=== PATIENT | male | born 1940 | race Caucasian/White ===

== ENCOUNTER → 2024-02-05 10:11 | Outpatient (REF) | payer MEDICARE, OTHER, SELFPAY | LOC: HWRCS 10:11 | PROVIDERS: ATTENDING PHYSICIAN Internal Medicine Cardiovascular Disease; FAMILY PHYSICIAN Family Medicine | DX: Z95.2 Presence of prosthetic heart valve (principal) | CPT/HCPCS: 93306 ==

== ENCOUNTER 2024-06-11 18:59 | Emergency (ER) | payer MEDICARE, OTHER, SELFPAY ==
[2024-06-11 18:59] VITALS: BMI 31.0
[2024-06-11 19:09] VITALS: BP 144/71
--- NOTE | 2024-06-11 22:05 | ED.GENMED ---
History of Present Illness
<JOBY Ndiaye - Last Filed: 06/11/24 22:43>
General
Chief Complaint: Musculo-Skeletal Complaint
Time Seen by Provider: 06/11/24 22:04
History of Present Illness
History of Present Illness:
Patient is an 83 year old male with a PMH of Parkinsons presenting to the ED complaining of left sided neck pain x 2 days. The pain started yesterday morning when he woke up but has worsened over time. He described the pain as sharp and rated it as
an 8/10 currently. Patient states the pain does not radiate anywhere and he tried taking tylenol and it did not help. He also tried a hot pack and an ice pack which did not alleviate symptoms. Turning his head in any direction exacerbates pain.
claims he constantly sits in a position where his head is tilted to the right side, and he sleeps with his head tilted. Nothing like this has happened before. Patient denies any headache fever numbness tingling swelling fatigue erythema chest pain
palpitations sob.
Patient has a PMH of HTN HLD and a CABG, but did not take his nighttime dosing of those medications. He is a former smoker and occasionally drinks alcohol.
Past History
<JOBY Ndiaye - Last Filed: 06/11/24 22:43>
Past History
ED Past Medical History: Arrthythmia (Atrial fib), CAD, HTN, Hypercholesterolemia and Other (Parkinsons )
ED Past Surgical History: Cardiac (cabg x2, TAVR, Pacemaker); Negative Appendectomy, Bowel resection or Cholecystectomy
Social History
Tobacco: Former smoker
Alcohol: Occasional
Drug: None
Personal:
Living: with family
Employment: Retired
Family History
Family History: Other (Noncontributory)
Review of Systems
<JOBY Ndiaye - Last Filed: 06/11/24 22:43>
Review of Systems
Constitutional: Reports no symptoms
Respiratory: Reports no symptoms
Cardiac: Reports no symptoms
Musculoskeletal: Reports muscle pain, muscle stiffness and neck pain
Neurological: Reports no symptoms
Phy Exam
<JinST LemuelWI - Last Filed: 06/11/24 22:43>
Physical Exam
Physical Exam:
see physical
General Physical Exam
General Presentation: mild distress
General age: appears stated age
General Habitus: elderly
General Mental: alert
Cardiovascular Exam
Cardiovascular Exam: regular rate/rhythm, no edema, no gallop, no JVD and no murmur
Pulmonary Exam
Pulmonary Exam: lungs clear, no respiratory distress, no rales, chest non tender, no crackles, no rhonchi, no stridor, no wheezing and no cough
Sensory
Sensory Exam: intact
Musculoskeletal Exam
Musculoskeletal Exam: neck pain
Course
<Jinjeanie Michel [facility] - Last Filed: 06/11/24 22:43>
Orders/Labs/Results
Orders:
Orders
06/11/24 22:33
Cervical Collar- Treatment ONCE
Collar Type: Soft Cervical Collar
Apixaban [Eliquis] 5 mg PO NOW STA
Atorvastatin [Lipitor] 20 mg PO NOW STA
Ketorolac [Toradol] 30 mg IM NOW STA
Metoprolol Xl [Toprol Xl] 25 mg PO NOW STA
Prednisone [Deltasone] 40 mg PO NOW STA
Vital Signs
Initial and Last Documented VS:
Initial Vital Signs
Temp Pulse Resp BP Pulse Ox
98.2 F 74 18 144/71 98
06/11/24 19:09 06/11/24 19:09 06/11/24 19:09 06/11/24 19:09 06/11/24 19:09
Last Documented Vital Signs
Temp Pulse Resp BP Pulse Ox
98.2 F 70 18 167/87 98
06/11/24 19:09 06/11/24 22:45 06/11/24 19:09 06/11/24 23:00 06/11/24 19:09
<Rani Mejias DO - Last Filed: 06/11/24 23:24>
Orders/Labs/Results
Orders:
Orders
06/11/24 22:33
Cervical Collar- Treatment ONCE
Collar Type: Soft Cervical Collar
Apixaban [Eliquis] 5 mg PO NOW STA
Atorvastatin [Lipitor] 20 mg PO NOW STA
Ketorolac [Toradol] 30 mg IM NOW STA
Metoprolol Xl [Toprol Xl] 25 mg PO NOW STA
Prednisone [Deltasone] 40 mg PO NOW STA
Vital Signs
Initial and Last Documented VS:
Initial Vital Signs
Temp Pulse Resp BP Pulse Ox
98.2 F 74 18 144/71 98
06/11/24 19:09 06/11/24 19:09 06/11/24 19:09 06/11/24 19:09 06/11/24 19:09
Last Documented Vital Signs
Temp Pulse Resp BP Pulse Ox
98.2 F 70 18 167/87 98
06/11/24 19:09 06/11/24 22:45 06/11/24 19:09 06/11/24 23:00 06/11/24 19:09
<JOBY Ndiaye - Last Filed: 06/11/24 22:43>
MDM/Problems Addressed
Differential Diagnosis Includes:
muscle strain, nerve impingement
MDM/Problems Addressed:
Give doses of Eliquis atorvastatin and metoprolol that he didn't take tonight, and give one dose of Toradol for pain and a short course of prednisone.
<JOBY Ndiaye - Last Filed: 06/11/24 22:43>
*Critical Care Note
Total Time (30-74mins, 75-104mins- exclusive of procedures): Not Applicable
<Rani Mejias DO - Last Filed: 06/11/24 23:24>
*Pulse Oximetry
Patient hypoxic: no
ED Attending Note
<JOBY Ndiaye - Last Filed: 06/11/24 22:43>
-
Portions of this chart may have been created with voice recognition software.� Occasional wrong word or��sound alike� substitutions may have occurred due to the inherent limitations of voice recognition software.
<Rani Mejias DO - Last Filed: 06/11/24 23:24>
ED Attending Note
Patient seen and examined by attending physician: Yes
I performed the substantive portion of visit, reviewed & personally made and approve the management plan that is documented in note by myself or KAMI.: Yes
ED Attending Note:
This is an 83-year-old gentleman who resides at home with his . He has history of Parkinson's disease, atrial fibrillation chronically maintained on Eliquis, CAD, hypertension, hyperlipidemia, BPH with chronic indwelling Leon catheter.
History of TAVR as well as CABG. Chronic ambulatory dysfunction, utilizes a walker as well as wheelchair but often sedentary and chronic position of comfort is side bent to the right.
He awoke yesterday with some mild discomfort left posterior cervical region. Left posterior neck pain has worsened since yesterday, much worse today without radiation but worse with attempted rotation of his neck.
No insightful injury but he does admit to a 'near fall' 2 to 3 days ago while walking with his walker, lost his balance and reached out to the left to balance himself. He did not fall and denies pain at that time.
He denies headache, he has not had a fever nor chills, no chest pain, no cough no shortness of breath, no radiation of the pain, no weakness nor numbness.
Thus far has taken Tylenol several times today without relief. He also reports no relief with topical ice alternating with heat.
Perhaps similar episode of neck pain approximately 10 years ago. No known history of cervical DJD.
He was just recently treated for UTI with a course of Bactrim that completed a few days ago. He also recently completed a Medrol Dosepak 2 days ago for treatment of left anterior knee redness and inflammation. Left knee pain and redness promptly
resolved with Medrol Dosepak.
He has remote history of pseudogout.
GENERAL: 83-year-old gentleman appears his stated age, awake and alert, appears mildly uncomfortable, resistant to movement of his neck otherwise easily communicative. is accompanying. Afebrile. Mildly hypertensive.
EYE: pupils equal and reactive. anicteric
NECK: No midline bony tenderness, no step-off deformity ,there is mild to moderate tenderness left posterior paracervical region, no soft tissue swelling, moderately restricted cervical range of motion in all [place] related to pain. No adenopathy.
ENT: posterior pharynx is clear, oral mucosa is moist. No rhinorrhea.
CARDIAC: Regular rate and rhythm. 2/6 holosystolic murmur left sternal border.
LUNGS: Clear breath sounds bilaterally, no acute respiratory distress, no wheezes/rales/rhonchi
ABDOMEN: Rotund, soft, nondistended, without focal tenderness, no r/g, no cvat. normoactive BS. Leon catheter draining dark yellow urine.
NEUROLOGICAL: Alert and oriented x3, no focal neuro deficits. Motor strength is 5/5 bilaterally. Gross sensation is intact.
SKIN: Warm and dry, normal color, skin intact. No rash.
MUSCULOSKELETAL: No clubbing or cyanosis. +1 pitting edema bilateral lower extremities. Peripheral pulses are full and equal b/l. No palpable tenderness.
PSYCH: Normal and appropriate interaction.
History and exam most consistent with musculoskeletal cervical pain. I suspect acute left cervical myofascial strain. Could consider an element of focal inflammatory arthropathy such as pseudogout of cervical spine however there is no skin
changes, no soft tissue swelling nor erythema.
No history of fall, no history of fever, no associated neurologic deficits nor radicular signs or symptoms. No headache.
Imaging as well as laboratory studies considered but at this point not indicated.
Patient chronically maintained on Eliquis thus ongoing NSAIDs are not an option but will give a one-time dose of Toradol to assist with pain control and plan for a course of prednisone.
Recommend continuing Tylenol as needed for pain, local heat. Will add a short course of muscle relaxer/Flexeril to be taken at bedtime as needed.
Will add soft cervical collar for head support/cervical support for as needed comfort.
Prompt follow-up with PCP for recheck.
Return precautions discussed.
Discharge Plan
Departure
Patient Disposition: Home (Routine Discharge)
Date of Disposition: 06/11/24
Time of Disposition: 23:18
Patient with high blood pressure during this ER visit?: No
Condition: Good
Discharge Problem:
Acute cervical myofascial strain
Instructions: Cervical Muscle Strain
Prescriptions:
New
prednisone 10 mg Tablet
See Rx Instructions .ROUTE .COMPLEX Qty: 30 0RF
Rx Instructions:
Take By Mouth:
40 mg daily x3 days, 30 mg daily x3 days,
20 mg daily x3 days, 10 mg daily x3 days.
No Action
atorvastatin 20 MG tablet
20 mg PO QPM
nitroglycerin 0.4 MG tablet, sublingual
0.4 mg sublingual [id number] PRN (Reason: chest pain)
Rx Instructions:
took over a year ago
zolpidem 5 MG tablet
5 - 10 mg PO HSPRN PRN (Reason: insomnia)
fluticasone propionate 1 SPRAY spray,suspension
1 spray intranasal DAILYPRN PRN (Reason: congestion)
carbidopa-levodopa 25-100 mg Tablet Extended Release
3 tab PO TID
gabapentin 400 mg Capsule
400 mg PO HS
metoprolol succinate 25 mg Tablet Extended Release 24 Hr
25 mg PO BID
rasagiline 1 mg Tablet
1 mg PO DAILY
Eliquis 5 mg Tablet
5 mg PO BID
aspirin 81 mg Capsule
81 mg PO DAILY
Referrals:
Shaw Whiteside, DO [Family Provider] - Call in 1-3 days for appt
Interventions
Interventions:
*General Assessment Last Done: 06/11/24 19:09
ED-Musculoskeletal Assessment Last Done: 06/11/24 22:19
Discharge Date and Time
Print Language: PASHTO
[2024-06-11 22:17] VITALS: BP 171/84
[2024-06-11] MEDS: ELIQUIS 5 MG PO (22:44)
[2024-06-11] MEDS: LIPITOR 20 MG PO (22:45)
[2024-06-11] MEDS: TOPROL XL 25 MG PO (22:45)
[2024-06-11] MEDS: DELTASONE 40 MG PO (22:46)
[2024-06-11] MEDS: TORADOL 30 MG IM (22:47)
[2024-06-11 23:00] VITALS: BP 167/87
== END 2024-06-11 23:58 | disposition home or self-care (01) ==
LOC: EMR 18:59
PROVIDERS: EMERGENCY PHYSICIAN Emergency Medicine; FAMILY PHYSICIAN Family Medicine
DX: S16.1XXA Strain of muscle, fascia and tendon at neck level, initial encounter (principal); X58.XXXA Exposure to other specified factors, initial encounter; G20.A1 Parkinson's disease without dyskinesia, without mention of fluctuations; I10 Essential (primary) hypertension; E78.00 Pure hypercholesterolemia, unspecified; Z87.891 Personal history of nicotine dependence
CPT/HCPCS: 99284; 96372

== ENCOUNTER → 2024-07-10 10:00 | Outpatient (REF) | payer MEDICARE, OTHER, SELFPAY | LOC: RAD 10:00 | PROVIDERS: ATTENDING PHYSICIAN Physician Assistant; FAMILY PHYSICIAN Family Medicine | DX: M54.12 Radiculopathy, cervical region (principal) | CPT/HCPCS: 72125 ==

== ENCOUNTER 2024-07-14 00:21 | Emergency (ER) | payer MEDICARE, OTHER, SELFPAY ==
[2024-07-14 00:26] VITALS: BP 155/71
[2024-07-14 00:27] VITALS: BP 155/71; BMI 33.3
--- NOTE | 2024-07-14 01:48 | ED.GENMED ---
History of Present Illness
General
Chief Complaint: Fall
Time Seen by Provider: 07/14/24 01:35
History of Present Illness
History of Present Illness:
Patient is a 84-year-old male with history of A-fib on Eliquis, hypertension, hyperlipidemia presenting to the emergency department out of after a fall. Patient states that he was sitting in his recliner. His is at bedside who states that
there is a statin but she on the recliner. Patient leaned forward to grab something and then slid out of the recliner landing on his bottom. He did not hit his head. He did not lose consciousness. He is having left-sided forearm pain which has
been ongoing for the past few days after he received his COVID booster. No swelling. No numbness no tingling. He is wheelchair-bound. He states that they called 911 to help assistance in getting him up and they brought him here for further
evaluation. At this time patient has no medical complaints.
Past History
Past History
ED Past Medical History: Arrthythmia (Atrial fib), CAD, HTN, Hypercholesterolemia and Other (Parkinsons )
ED Past Surgical History: Cardiac (cabg x2, TAVR, Pacemaker); Negative Appendectomy, Bowel resection or Cholecystectomy
Social History
Tobacco: Former smoker
Alcohol: Occasional
Drug: None
Personal:
Living: with family
Employment: Retired
Family History
Family History: Other (Noncontributory)
Phy Exam
Physical Exam
Physical Exam:
GENERAL: in no acute distress
HEENT: normocephalic, extraocular movements intact, small superficial abrasion to the left cheek about 2 cm moist oral mucosa
NECK: normal inspection
RESPIRATORY: no respiratory distress, clear to auscultation bilaterally
CARDIOVASCULAR: regular rate and rhythm
ABDOMEN/: soft, non-distended, non-tender to palpation, no rebound or guarding
EXTREMITIES: non-tender, no edema/swelling
NEUROLOGIC: awake and alert, moves all extremities
SKIN: warm
Course
Orders/Labs/Results
Orders:
Orders
07/14/24 01:08
Forearm, Left 2 View [CR Forearm - Left 2 View] Urgent
Comment:
Reason For Exam: fall/pain
Vital Signs
Initial and Last Documented VS:
Initial Vital Signs
Temp Pulse Resp BP Pulse Ox
99.2 F 70 16 155/71 94
07/14/24 00:27 07/14/24 00:27 07/14/24 00:27 07/14/24 00:27 07/14/24 00:27
Last Documented Vital Signs
Temp Pulse Resp BP Pulse Ox
99.2 F 70 16 155/71 94
07/14/24 00:27 07/14/24 00:27 07/14/24 00:27 07/14/24 00:07/14/24 00:27
MDM/Problems Addressed
Differential Diagnosis Includes:
Patient is a 84-year-old man presenting to the emergency department after he slid out of his recliner. Vitals are unremarkable and exam shows a very superficial abrasion to the left cheek. Patient states that this is not occurred during the fall
and occurred when he was being transferring to the ambulance. He was having left-sided arm pain though that has resolved. During my evaluation he has no traumatic injuries on exam. I did consider obtaining a head CT given the thinners plus
laceration however after shared decision making we will hold off given that he has no neurodeficit and is at his baseline. X-ray obtained prior to evaluation does not show any acute fractures per my interpretation. I did discuss with patient's
at bedside to remove the satin sheet to prevent falls. She will be with him throughout the night. Will discharge him at this time with strict return precautions. They will follow-up with PCP tomorrow
*Critical Care Note
Total Time (30-74mins, 75-104mins- exclusive of procedures): Not Applicable
ED Attending Note
-
Portions of this chart may have been created with voice recognition software.� Occasional wrong word or��sound alike� substitutions may have occurred due to the inherent limitations of voice recognition software.
Discharge Plan
Departure
Patient Disposition: Home (Routine Discharge)
Date of Disposition: 07/14/24
Time of Disposition: 01:47
Patient with high blood pressure during this ER visit?: No
Discharge Problem:
Fall
Instructions: Preventing falls in adults
Prescriptions:
No Action
atorvastatin 20 MG tablet
20 mg PO QPM
nitroglycerin 0.4 MG tablet, sublingual
0.4 mg sublingual [id number] PRN (Reason: chest pain)
Rx Instructions:
took over a year ago
zolpidem 5 MG tablet
5 - 10 mg PO HSPRN PRN (Reason: insomnia)
fluticasone propionate 1 SPRAY spray,suspension
1 spray intranasal DAILYPRN PRN (Reason: congestion)
carbidopa-levodopa 25-100 mg Tablet Extended Release
3 tab PO TID
gabapentin 400 mg Capsule
400 mg PO HS
metoprolol succinate 25 mg Tablet Extended Release 24 Hr
25 mg PO BID
rasagiline 1 mg Tablet
1 mg PO DAILY
Eliquis 5 mg Tablet
5 mg PO BID
aspirin 81 mg Capsule
81 mg PO DAILY
prednisone 10 mg Tablet
See Rx Instructions .ROUTE .COMPLEX Qty: 30 0RF
Rx Instructions:
Take By Mouth:
40 mg daily x3 days, 30 mg daily x3 days,
20 mg daily x3 days, 10 mg daily x3 days.
Referrals:
Shaw Whiteside DO [Family Provider] -
Interventions
Interventions:
*Risk Screen - Suicide Last Done: 07/14/24 00:27
*General Assessment Last Done: 07/14/24 00:27
*Neglect/Abuse Screening Last Done: 07/14/24 00:27
*ED COVID-19 Vaccine History Last Done: 07/14/24 00:27
ED- Neurological Assessment Last Done: 07/14/24 00:32
Discharge Date and Time
Print Language: NEPALI
== END 2024-07-14 03:59 | disposition home or self-care (01) ==
LOC: EMR 00:21
PROVIDERS: EMERGENCY PHYSICIAN Student in an Organized Health Care Education/Training Program; FAMILY PHYSICIAN Family Medicine
DX: S00.81XA Abrasion of other part of head, initial encounter (principal); M79.632 Pain in left forearm; W07.XXXA Fall from chair, initial encounter; I10 Essential (primary) hypertension; E78.00 Pure hypercholesterolemia, unspecified; I48.91 Unspecified atrial fibrillation; Z79.01 Long term (current) use of anticoagulants; I25.10 Atherosclerotic heart disease of native coronary artery without angina pectoris; G20.A1 Parkinson's disease without dyskinesia, without mention of fluctuations; Z99.3 Dependence on wheelchair; Z95.1 Presence of aortocoronary bypass graft; Z95.0 Presence of cardiac pacemaker; Z87.891 Personal history of nicotine dependence
CPT/HCPCS: 99283; 73090

== ENCOUNTER 2024-08-02 10:16 | Emergency (ER) | payer MEDICARE, OTHER, SELFPAY ==
[2024-08-02 10:20] VITALS: BP 120/63
--- NOTE | 2024-08-02 11:24 | ED.GENMED ---
History of Present Illness
General
Chief Complaint: Bowel Problem
Source: patient and spouse
Exam Limitations: none
Time Seen by Provider: 08/02/24 11:01
Nursing documentation reviewed up to this point in time: agreed with
History of Present Illness
History of Present Illness:
84-year-old male presents the constipation last normal bowel was about 3 days ago he has been straining straining so much that he get himself a bloody nose takes Eliquis none this morning packed his nose on the right has some mild lower
abdominal cramping but no vomiting has had colonoscopy previously, takes Colace has a prescription for MiraLAX which she has not started yet no narcotic use recently
Past History
Past History
ED Past Medical History: Arrthythmia (Atrial fib), CAD, HTN, Hypercholesterolemia and Other (Parkinsons )
ED Past Surgical History: Cardiac (cabg x2, TAVR, Pacemaker); Negative Appendectomy, Bowel resection or Cholecystectomy
Social History
Tobacco: Former smoker
Alcohol: Occasional
Drug: None
Personal:
Living: with family
Employment: Retired
Family History
Family History: Other (Noncontributory)
Review of Systems
Review of Systems
All Other Systems: Not applicable
Constitutional: Denies fatigue
EENT: Reports other (Bleeding)
ABD/GI: Reports constipated
Neurological: Reports no symptoms
Endocrine: Reports no symptoms
Hematologic/Lymphatic: Reports no symptoms
Phy Exam
Physical Exam
Physical Exam:
Physical Exam
General: no apparent distress, not acutely ill
Neck: Dry pack in the right nare
Lungs: no acute respiratory distress.
Abdomen: Soft minimal suprapubic tenderness
Neuro: alert and oriented. no focal neurological deficits
Skin: no rash
Psychiatric: well kept. interactive and cooperative
Extremities: no edema.
Course
Orders/Labs/Results
Orders:
Orders
08/02/24 11:01
Abdomen Xray - 1 View [CR Abdomen - 1 View] Urgent
Comment:
Reason For Exam: full of stool
08/02/24 11:26
Magnesium Citrate [Citroma] 300 ml PO ONCE ONE
Magnesium Hydroxide [Milk of Magnesia] 30 ml PO NOW STA
Vital Signs
Initial and Last Documented VS:
Initial Vital Signs
Temp Pulse Resp BP Pulse Ox
98.1 F 85 16 120/63 98
08/02/24 10:20 08/02/24 10:20 08/02/24 10:20 08/02/24 10:20 08/02/24 10:20
Last Documented Vital Signs
Temp Pulse Resp BP Pulse Ox
98.1 F 70 18 142/76 97
08/02/24 10:20 08/02/24 11:47 08/02/24 11:47 08/02/24 11:47 08/02/24 11:47
MDM/Problems Addressed
Differential Diagnosis Includes:
Constipation obstipation obstruction fecal impaction nasal bleed
MDM/Problems Addressed:
Constipation nosebleed
Chronic conditions affecting care: Arrhythmia
Acute Exacerbation and/or Progression of Chronic Illness: Arrhythmia
*Radiology
Radiology exam reviewed: preliminary read by ED provider
*Pulse Oximetry
Patient hypoxic: no
*Critical Care Note
Total Time (30-74mins, 75-104mins- exclusive of procedures): Not Applicable
Update Note
Update Note:
Update, x-ray noted looks like a fair amount of stool in the right colon not much in the rectum will start aggressive bowel regimen
X-ray noted patient feeling better no longer bleeding from his nose
ED Attending Note
-
Portions of this chart may have been created with voice recognition software.� Occasional wrong word or��sound alike� substitutions may have occurred due to the inherent limitations of voice recognition software.
Discharge Plan
Departure
Patient Disposition: Home (Routine Discharge)
Date of Disposition: 08/02/24
Time of Disposition: 13:08
Patient with high blood pressure during this ER visit?: No
Condition: Good
Discharge Problem:
Constipation, Epistaxis
Instructions: Constipation, Adult (DC), Nosebleeds (DC)
Prescriptions:
No Action
atorvastatin 20 MG tablet
20 mg PO QPM
nitroglycerin 0.4 MG tablet, sublingual
0.4 mg sublingual [id number] PRN (Reason: chest pain)
Rx Instructions:
took over a year ago
zolpidem 5 MG tablet
5 - 10 mg PO HSPRN PRN (Reason: insomnia)
fluticasone propionate 1 SPRAY spray,suspension
1 spray intranasal DAILYPRN PRN (Reason: congestion)
carbidopa-levodopa 25-100 mg Tablet Extended Release
3 tab PO TID
gabapentin 400 mg Capsule
400 mg PO HS
metoprolol succinate 25 mg Tablet Extended Release 24 Hr
25 mg PO BID
rasagiline 1 mg Tablet
1 mg PO DAILY
Eliquis 5 mg Tablet
5 mg PO BID
aspirin 81 mg Capsule
81 mg PO DAILY
prednisone 10 mg Tablet
See Rx Instructions .ROUTE .COMPLEX Qty: 30 0RF
Rx Instructions:
Take By Mouth:
40 mg daily x3 days, 30 mg daily x3 days,
20 mg daily x3 days, 10 mg daily x3 days.
Referrals:
Karely Siddiqui PA [Family Provider] - Next open appointment
Activity Restrictions/Additional Instructions:
Start bottle of magnesium citrate every day for the next few days if your bowels are moving
Then start MiraLAX daily you can stop if your bowels become too mushy
Interventions
Interventions:
*Risk Screen - Suicide Last Done: 08/02/24 10:20
*General Assessment Last Done: 08/02/24 11:20
*Neglect/Abuse Screening Last Done: 08/02/24 10:20
CI-Tqccyz-Vllckwqqyj Assessment Last Done: 08/02/24 11:45
ED-EENT Assessment Last Done: 08/02/24 11:45
Discharge Date and Time
Print Language: [place]
[2024-08-02] MEDS: MILK OF MAGNESIA 30 ML PO (11:32)
[2024-08-02] MEDS: CITROMA 300 ML PO (11:33)
[2024-08-02 11:47] VITALS: BP 142/76
== END 2024-08-02 13:22 | disposition home or self-care (01) ==
LOC: EMR 10:16
PROVIDERS: EMERGENCY PHYSICIAN Emergency Medicine; FAMILY PHYSICIAN Physician Assistant Medical
DX: K59.00 Constipation, unspecified (principal); R04.0 Epistaxis; I48.91 Unspecified atrial fibrillation; I25.10 Atherosclerotic heart disease of native coronary artery without angina pectoris; I10 Essential (primary) hypertension; E78.00 Pure hypercholesterolemia, unspecified; G20.A1 Parkinson's disease without dyskinesia, without mention of fluctuations; Z87.891 Personal history of nicotine dependence; Z90.49 Acquired absence of other specified parts of digestive tract; Z95.0 Presence of cardiac pacemaker; Z95.1 Presence of aortocoronary bypass graft
CPT/HCPCS: 99283; 74018

== ENCOUNTER 2025-01-22 12:07 | Emergency (ER) | payer MEDICARE, OTHER, SELFPAY ==
[2025-01-22 12:09] VITALS: BMI 29.8
[2025-01-22 12:16] VITALS: BP 155/88
--- NOTE | 2025-01-22 17:54 | ED.GENMED ---
History of Present Illness
General
Chief Complaint: Bowel Problem
Source: patient and spouse
Exam Limitations: none
Time Seen by Provider: 01/22/25 12:41
History of Present Illness
History of Present Illness:
84yoM with a history of Parkinson's, atrial fibrillation on Eliquis, coronary artery disease, and hypertension presenting with his for evaluation of constipation. Patient reports having stool stuck in his rectum. He was able to manually
disimpact himself yesterday and clogged the toilet due to the large amount of stool. He still feels like he has stool stuck in his rectum and is having rectal discomfort. has been giving him stool softeners and a fiber supplement without much
relief. He denies any vomiting or abdominal pain. He has a Leon catheter which is draining well.
Past History
Past History
ED Past Medical History: Arrthythmia (Atrial fib), CAD, HTN, Hypercholesterolemia and Other (Parkinsons )
ED Past Surgical History: Cardiac (cabg x2, TAVR, Pacemaker); Negative Appendectomy, Bowel resection or Cholecystectomy
Social History
Tobacco: Former smoker
Alcohol: Occasional
Drug: None
Personal:
Living: with family
Employment: Retired
Family History
Family History: Other (Noncontributory)
Phy Exam
General Physical Exam
General Presentation: well appearing and no apparent distress
General age: appears stated age
General Skin: warm and dry
General Habitus: elderly
General Mental: alert
ENT Exam
ENT Exam: normocephalic
Pulmonary Exam
Pulmonary Exam: no respiratory distress
Gastrointestinal Exam
Gastrointestinal Exam: normal bowel sounds, non tender, soft and non distended
Stool: other (Hard stool on rectal exam)
Neurological Exam
Neurological Exam: alert
Skin Exam
Skin Exam: normal color and warm/dry
Psychiatric Exam
Psychiatric Exam: normal mood/affect
Course
Orders/Labs/Results
Orders:
Orders
01/22/25 12:21
Abdomen Xray - 1 View [CR Abdomen - 1 View] Urgent
Comment:
Reason For Exam: fos
01/22/25 14:07
Enema- Treatment ONCE
Type: Milk of Molasses
Vital Signs
Initial and Last Documented VS:
Initial Vital Signs
Temp Pulse Resp Pulse Ox
98.0 F 72 18 97
01/22/25 12:09 01/22/25 12:09 01/22/25 12:09 01/22/25 12:09
Last Documented Vital Signs
Temp Pulse Resp BP Pulse Ox
98.0 F 72 18 155/88 97
01/22/25 12:09 01/22/25 12:09 01/22/25 12:09 01/22/25 12:16 01/22/25 12:09
MDM/Problems Addressed
Differential Diagnosis Includes:
84yoM here with constipation. Feels like he has stool stuck in his rectum. No abdominal pain or vomiting. Abdomen is soft, non-distended, and non-tender. Hard stool palpated on rectal exam and manual disimpaction performed with several hard pieces
of stool removed. Differential diagnosis includes: constipation, fecal impaction, stercoral colitis
Initial ED plan: KUB obtained prior to initial exam which shows small volume of stool. Enema ordered.
*Critical Care Note
Total Time (30-74mins, 75-104mins- exclusive of procedures): Not Applicable
Update Note
Update Note:
Patient given enema and was able to have a large BM. He did have some rectal bleeding after receiving the enema. is worried that he did not evacuate completely. Repeat rectal exam performed and no stool palpated. He is stable for discharge.
Advised Miralax 1-2x daily as needed and f/u with PCP. ED return precautions reviewed.
ED Attending Note
-
Portions of this chart may have been created with voice recognition software.� Occasional wrong word or��sound alike� substitutions may have occurred due to the inherent limitations of voice recognition software.
Discharge Plan
Departure
Patient Disposition: Home (Routine Discharge)
Date of Disposition: 01/22/25
Time of Disposition: 15:29
Patient with high blood pressure during this ER visit?: Yes
Discharge Problem:
Fecal impaction
Instructions: Fecal Impaction (DC)
Prescriptions:
No Action
atorvastatin 20 MG tablet
20 mg PO QPM
nitroglycerin 0.4 MG tablet, sublingual
0.4 mg sublingual [id number] PRN (Reason: chest pain)
Rx Instructions:
took over a year ago
zolpidem 5 MG tablet
5 - 10 mg PO HSPRN PRN (Reason: insomnia)
fluticasone propionate 1 SPRAY spray,suspension
1 spray intranasal DAILYPRN PRN (Reason: congestion)
carbidopa-levodopa 25-100 mg Tablet Extended Release
3 tab PO TID
gabapentin 400 mg Capsule
400 mg PO HS
metoprolol succinate 25 mg Tablet Extended Release 24 Hr
25 mg PO BID
rasagiline 1 mg Tablet
1 mg PO DAILY
Eliquis 5 mg Tablet
5 mg PO BID
aspirin 81 mg Capsule
81 mg PO DAILY
prednisone 10 mg Tablet
See Rx Instructions .ROUTE .COMPLEX Qty: 30 0RF
Rx Instructions:
Take By Mouth:
40 mg daily x3 days, 30 mg daily x3 days,
20 mg daily x3 days, 10 mg daily x3 days.
magnesium citrate [Citrate of Magnesia] Solution
150 ml PO DAILY PRN (Reason: Constipation) Qty: 296 5RF
Referrals:
Shaw Whiteside, DO [Family Provider] -
Activity Restrictions/Additional Instructions:
Take Miralax 1-2x daily as needed for constipation.
Please follow-up with your family doctor. Return to the ER with any new or worsening symptoms.
Interventions
Interventions:
*Risk Screen - Suicide Last Done: 01/22/25 12:09
*General Assessment Last Done: 01/22/25 12:09
*Nursing Disposition Last Done: 01/22/25 16:01
ID-Sywfll-Grrdcmqfga Assessment Last Done: 01/22/25 12:58
Discharge Date and Time
Discharge Date/Time: 01/22/25 16:03
Print Language: YI
== END 2025-01-22 16:03 | disposition home or self-care (01) ==
LOC: EMR 12:07
PROVIDERS: EMERGENCY PHYSICIAN Emergency Medicine; FAMILY PHYSICIAN Family Medicine
DX: K56.41 Fecal impaction (principal); G20.A1 Parkinson's disease without dyskinesia, without mention of fluctuations; I48.91 Unspecified atrial fibrillation; I25.10 Atherosclerotic heart disease of native coronary artery without angina pectoris; I10 Essential (primary) hypertension; E78.00 Pure hypercholesterolemia, unspecified; Z79.01 Long term (current) use of anticoagulants; Z87.891 Personal history of nicotine dependence; Z95.1 Presence of aortocoronary bypass graft; Z95.0 Presence of cardiac pacemaker
CPT/HCPCS: 99283; 74018

== ENCOUNTER → 2025-01-27 10:21 | Outpatient (REF) | payer MEDICARE, OTHER, SELFPAY | LOC: HWRCS 10:21 | PROVIDERS: ATTENDING PHYSICIAN Internal Medicine Cardiovascular Disease; FAMILY PHYSICIAN Family Medicine | DX: Z95.2 Presence of prosthetic heart valve (principal) | CPT/HCPCS: 93306 ==

== ENCOUNTER 2025-04-13 12:04 | Emergency (ER) | payer MEDICARE, OTHER, SELFPAY ==
[2025-04-13 12:06] VITALS: BP 154/84
[2025-04-13 12:28] LABS: Hematocrit 43.4 % (39.0-52.0); Hemoglobin 14.3 g/dL (13.0-18.0); Mean Corp Hgb Conc. 32.9 g/dL (33.0-37.0); Mean Corpuscular Volume 89.5 fL (80.0-94.0); Nucleated Red Blood Cells % 0 % (-); Platelet Count 154 10^3/uL (130-400); Red Cell Dist. Width 15.3 % (11.5-14.5)
--- NOTE | 2025-04-13 12:44 | ED.GENMED ---
History of Present Illness
General
Chief Complaint: Blood Pressure Problem
Source: patient, records and spouse
Exam Limitations: none
Time Seen by Provider: 04/13/25 12:28
Nursing documentation reviewed up to this point in time: agreed with
History of Present Illness
History of Present Illness:
84-year-old male with a past medical history of Parkinson's, hypertension, hyperlipidemia, aortic stenosis status post TAVR, permanent pacemaker, atrial fibrillation on Eliquis, CAD status post CABG who presents to the emergency department with his
for evaluation of hypertension. Patient reports that the occupational therapist was out to visit today and checked his blood pressure multiple times and noted that it was elevated�apparently reading was 160/80 consistently. This is much
higher than typical for him and so he was referred to the ER to be assessed. Patient says that he feels normal and that he has no acute issues today otherwise�apparently the therapist thought that he appeared to be short of breath but he says that
he had just finished wheeling himself out to the bathroom at the time and he typically does get winded with this activity of transitioning from toilet to wheelchair. He denies feeling short of breath here in the emergency room. Denies chest pain.
Denies any headache. Denies any loss of vision, speech issues, weakness or numbness in the extremities. No other acute complaints. His current medicines for blood pressure include Toprol-XL 25 mg twice daily and losartan 25 mg daily. No recent
adjustments and patient reports compliance.
Past History
Past History
ED Past Medical History: Arrthythmia (Atrial fib), CAD, HTN, Hypercholesterolemia and Other (Parkinsons )
ED Past Surgical History: Cardiac (cabg x2, TAVR, Pacemaker); Negative Appendectomy, Bowel resection or Cholecystectomy
Social History
Tobacco: Former smoker
Alcohol: Occasional
Drug: None
Personal:
Living: with family
Employment: Retired
Family History
Family History: Other (Noncontributory)
Review of Systems
Review of Systems
All Other Systems: ROS reviewed and negative except as documented in HPI and ROS
Constitutional: Denies fever
Respiratory: Denies trouble breathing
Cardiac: Denies chest pain
ABD/GI: Denies abdominal pain or vomiting
: Denies flank pain
Musculoskeletal: Reports edema (Chronic and unchanged); Denies neck pain or back pain
Neurological: Denies dizzy, headache, weakness or numbness
Phy Exam
Physical Exam
Physical Exam:
General: Awake, alert, oriented x3; no acute distress
Head: Normocephalic, atraumatic
Eyes: Conjunctiva normal, pupils equal round reactive to light bilaterally
Throat: Airway intact, handling secretions
Neck: Trachea midline, no JVD
Lungs: Clear to auscultation bilaterally, no wheezing, rales, rhonchi
Heart: Regular rate and rhythm, no murmurs, gallops, or rubs
Abd: Soft, non distended, nontender
Neuro: No gross focal deficits
Extremities: Bilateral lower extremity edema, equal pulses in all extremities
Scores
Heart Failure Risk
Heart Failure Risk Score: Not Applicable
Heart Score for Chest Pain Patients
STEMI patient?: Not applicable
Withdrawal Assessment of Alcohol
Withdrawal Assessment Completed?: Not applicable
Course
Orders/Labs/Results
Orders:
Orders
04/13/25 12:08
ECG [Electrocardiogram (*1)] Urgent
Reason for Study: Shortness of Breath
EKG- Treatment ONCE
04/13/25 12:19
Complete Blood Count/With Diff Urgent
Comprehensive Metabolic Panel Urgent
Pro-BNP [NT-proBNP] Urgent
Troponin I Urgent
04/13/25 12:29
Interrogate Pacemaker- Treatment ONCE
04/13/25 12:43
Metoprolol Xl [Toprol Xl] 12.5 mg PO NOW STA
04/13/25 12:44
CR Chest Portable - 1 View Urgent
Comment:
Reason For Exam: sob
Reason Study Needs to be Portable: Unable to Transport
Abnormal Lab Results
04/13/25
12:19
MCHC 32.9 L g/dL
(33.0-37.0)
RDW 15.3 H %
(11.5-14.5)
MPV 10.7 H fL
(7.4-10.4)
Absolute Monos (auto) 0.9 H 10^3/uL
(0.1-0.6)
Monocytes % 10.4 H %
(1.7-9.3)
Carbon Dioxide 32 H mmol/L
(22-30)
BUN 30 H mg/dl
(9-20)
04/13/25 12:19
04/13/25 12:19
Vital Signs
Initial and Last Documented VS:
Initial Vital Signs
Temp Pulse Resp BP Pulse Ox
36.9 C 81 16 154/84 98
04/13/25 12:06 04/13/25 12:06 04/13/25 12:06 04/13/25 12:06 04/13/25 12:06
Last Documented Vital Signs
Temp Pulse Resp BP Pulse Ox
36.9 C 79 24 154/84 97
04/13/25 12:06 04/13/25 12:48 04/13/25 12:48 04/13/25 12:06 04/13/25 12:48
MDM/Problems Addressed
Differential Diagnosis Includes:
Hypertension
MDM/Problems Addressed:
84-year-old male with history as noted presents for evaluation of hypertension by OT today. Apparently the therapist also felt that he looked short of breath although patient denies feeling short of breath and says that this was simply after
exerting himself when transitioning from wheelchair to bathroom. He is hypertensive here with blood pressures ranging from 154-174/80-90. Paced rhythm on EKG. Exam as above. Will plan to check labs including a CBC and a CMP; given report of
dyspnea will check proBNP and chest x-ray although clinically does not appear to be in congestive heart failure. Will monitor blood pressure closely and reassess after the above.
Labs reviewed: CBC and CMP no clinically significant abnormalities. Troponin undetectable. proBNP 589 and chest x-ray shows no acute pathology specifically no signs of CHF. Patient's blood pressure improved without intervention�initially plan was
to give low-dose of extra metoprolol but blood pressure normalized prior to giving medication. At this point hesitant to make any adjustments to his medication regimen given his report that in the past he has had issues with low blood pressure.
Stable for discharge and can follow-up with his primary care physician--I sent a message to his primary doctor to ensure good follow-up. Patient comfortable with this plan. All questions answered.
Chronic conditions affecting care:
Extensive cardiac history
Acute Exacerbation and/or Progression of Chronic Illness:
Acutely hypertensive
Acute Exacerbation and/or Progression of Chronic Illness: HTN
*Radiology
Radiology exam reviewed: preliminary read by ED provider
*Pulse Oximetry
SaO2: 98
Oxygen Mode of Delivery: Room air
Patient hypoxic: no (98%)
*EKG
Interpreted by ED Provider?: Yes
Heart Rate: 72
Rate: normal
Rhythm: ventricular paced
*Critical Care Note
Total Time (30-74mins, 75-104mins- exclusive of procedures): Not Applicable
Data Reviewed
Review of Other/Old Records Reveals: Labs and Records
Source: patient, records and spouse
Patient Management
Discussion with other providers: PCP (Discussed with patient's primary doctor)
ED Attending Note
-
Portions of this chart may have been created with voice recognition software.� Occasional wrong word or��sound alike� substitutions may have occurred due to the inherent limitations of voice recognition software.
Discharge Plan
Departure
Patient Disposition: Home (Routine Discharge)
Date of Disposition: 04/13/25
Time of Disposition: 13:11
Patient with high blood pressure during this ER visit?: Yes
Discharge Problem:
Hypertension
Instructions: High Blood Pressure (DC)
Prescriptions:
No Action
atorvastatin 20 MG tablet
20 mg PO QPM
nitroglycerin 0.4 MG tablet, sublingual
0.4 mg sublingual [id number] PRN (Reason: chest pain)
Rx Instructions:
took over a year ago
zolpidem 5 MG tablet
5 - 10 mg PO HSPRN PRN (Reason: insomnia)
fluticasone propionate 1 SPRAY spray,suspension
1 spray intranasal DAILYPRN PRN (Reason: congestion)
carbidopa-levodopa 25-100 mg Tablet Extended Release
3 tab PO TID
gabapentin 400 mg Capsule
400 mg PO HS
metoprolol succinate 25 mg Tablet Extended Release 24 Hr
25 mg PO BID
rasagiline 1 mg Tablet
1 mg PO DAILY
Eliquis 5 mg Tablet
5 mg PO BID
aspirin 81 mg Capsule
81 mg PO DAILY
prednisone 10 mg Tablet
See Rx Instructions .ROUTE .COMPLEX Qty: 30 0RF
Rx Instructions:
Take By Mouth:
40 mg daily x3 days, 30 mg daily x3 days,
20 mg daily x3 days, 10 mg daily x3 days.
magnesium citrate [Citrate of Magnesia] Solution
150 ml PO DAILY PRN (Reason: Constipation) Qty: 296 5RF
Referrals:
Shaw Whiteside DO [Active, Family Practice] - Call in 1-3 days for appt
Activity Restrictions/Additional Instructions:
Thank you for visiting the Emergency Department at [facility].
1. Please schedule a follow up appointment as directed. Call first thing tomorrow morning to make an appointment.
2. If indicated, please take your medications as instructed and indicated on discharge paperwork.
3. If any of your symptoms do not improve, or persist, or become more severe within 6-12 hours, please return to the emergency department for further care.
4. Please return to the emergency department if you develop a headache, neck pain/stiffness, fever greater than 100.4F, chest pain, shortness of breath, persistent nausea, vomiting, slurred speech, difficulty walking, numbness/tingling, weakness,
signs of infection or any other symptoms that are worrisome to you.
Please call [phone] if you have any questions.
Discharge Date and Time
Print Language: GUINEAN
[2025-04-13 12:52] VITALS: BMI 30.4
[2025-04-13 12:53] LABS: Troponin I < 0.012 ng/ml
[2025-04-13 12:55] LABS: ALT (SGPT) < 10 U/L (0-50); AST (SGOT) 18 U/L (17-59); Albumin 4.6 g/dl (3.5-5.0); Alkaline Phosphatase 85 U/L (38-126); Blood Urea Nitrogen 30 mg/dl (9-20); Calcium 9.8 mg/dl (8.4-10.2); Carbon Dioxide 32 mmol/L (22-30); Chloride 100 mmol/L (98-107); Estimated Creatinine Clearance 62 ml/min; Glucose 93 mg/dl (70-99); Potassium 4.9 mmol/L (3.5-5.1); Sodium 139 mmol/L (135-145); Total Protein 7.4 g/dl (6.3-8.2); eGFR > 60.00
[2025-04-13 13:00] VITALS: BP 140/84
[2025-04-13 13:04] VITALS: BP 140/84
== END 2025-04-13 14:14 | disposition home or self-care (01) ==
LOC: EMR 12:04
PROVIDERS: EMERGENCY PHYSICIAN Emergency Medicine; FAMILY PHYSICIAN Family Medicine
DX: I10 Essential (primary) hypertension (principal); I25.10 Atherosclerotic heart disease of native coronary artery without angina pectoris; E78.00 Pure hypercholesterolemia, unspecified; G20.A1 Parkinson's disease without dyskinesia, without mention of fluctuations; I48.91 Unspecified atrial fibrillation; I35.0 Nonrheumatic aortic (valve) stenosis; Z79.01 Long term (current) use of anticoagulants; Z87.891 Personal history of nicotine dependence; Z95.0 Presence of cardiac pacemaker; Z95.1 Presence of aortocoronary bypass graft; Z95.2 Presence of prosthetic heart valve; Z79.899 Other long term (current) drug therapy
CPT/HCPCS: 99285; 71045; 80053; 83880; 84484; 85025; 93005

== ENCOUNTER → 2025-08-04 10:07 | Outpatient (REF) | payer MEDICARE, OTHER, SELFPAY | LOC: RST 10:07 | PROVIDERS: ATTENDING PHYSICIAN Student in an Organized Health Care Education/Training Program; FAMILY PHYSICIAN Family Medicine | DX: R13.10 Dysphagia, unspecified (principal) | CPT/HCPCS: 74230; 92611 ==

== ENCOUNTER 2025-08-14 17:01 | Observation (INO) | payer MEDICARE, OTHER, SELFPAY ==
[2025-08-14 13:06] VITALS: BP 174/95
--- NOTE | 2025-08-14 15:34 | ED.GENMED ---
History of Present Illness
General
Chief Complaint: Nose Bleed
Source: patient and spouse
Time Seen by Provider: 08/14/25 13:35
History of Present Illness
History of Present Illness:
Note:
CHIEF COMPLAINT(S)
Nosebleed (epistaxis)
HISTORY OF PRESENT ILLNESS
The patient is a 85-year-old male presenting with an episode of epistaxis that began a couple of hours prior to arrival. The bleeding initiated during a bowel movement, which the patient believes involved straining. The epistaxis is active, with red
blood observed from the right nasal passage and possibly originating from the posterior pharynx; however, the anterior right septum appears normal. The patient reports spitting blood, and he is currently taking the anticoagulant Apixaban (Eliquis).
The patient denies any respiratory distress during this episode.
Additional historian
Spouse states that he has had nosebleeds in the past. She states he has been coughing sometimes after eating and maybe that triggered the epistaxis
CHRONIC MEDICAL CONDITIONS SIGNIFICANTLY AFFECTING CARE
The patient has limited mobility due to Parkinsons disease, which impacts his extremities.
MEDICATIONS
The patient is currently taking Apixaban (Eliquis), a blood thinner.
PHYSICAL EXAM
General: Alert, no acute distress.
Skin: Warm, dry.
Head: Normocephalic, atraumatic.
Neck: Supple, trachea midline.
Eye, Ears, Nose, Mouth, and Throat: Active red blood observed from the right nasal passage and posterior pharynx; anterior right septum appears normal. Oral mucosa moist. Posterior pharyngeal blood noted
Cardiovascular: Normal peripheral perfusion, No edema.
Respiratory: Respirations are non-labored.
Gastrointestinal: Abdomen nondistended.
Musculoskeletal: Limited range of motion in cogwheel rigidity due to Parkinson's.
Neurological: Alert and oriented to person, place, time, and situation. No focal neurological deficit observed.
Psychiatric: Cooperative, appropriate mood & affect.
PROBLEM LIST
Acute:
- Epistaxis
Chronic:
- Parkinsons disease
PLAN
The patient will receive an intervention to address and control the bleeding, potentially utilizing nasal packing or cauterization. Due to the patients use of Apixaban (Eliquis), careful monitoring for further bleeding episodes will be essential.
Further evaluation and management will be based on the patients response to initial treatment.
DIFFERENTIAL DIAGNOSIS
The Differential Diagnosis includes, in no particular order and is not limited to:
- Hypertension
- Coagulopathy due to anticoagulation therapy
- Nasal trauma
- Nasal polyps
- Allergic rhinitis
- Upper respiratory infection
- Sinusitis
- Dry nasal mucosa
- Hereditary hemorrhagic telangiectasia
- Vascular malformation of nasal cavity
Disposition:
SUMMARY OF ENCOUNTER
A 85-year-old male presented with posterior epistaxis from the right nostril. The bleeding could not be controlled via cauterization, so a 7.5 cm balloon was placed in the right nasal passage and treated with tranexamic acid (TXA). On reassessment,
the bleeding was significantly improved, though there was still minimal oozing at the balloon site. The patient is on apixaban (Eliquis), complicating bleeding management. Continuous monitoring was advised with the possibility of using an epistad
posterior balloon if further intervention is needed. Due to the anticoagulant therapy and the suspected posterior epistaxis, the case will be discussed with ENT (Ear, Nose, and Throat specialist) for potential admission.t
DISPOSITION
Admit
ASSESSMENT
Suspected posterior epistaxis complicated by anticoagulant use.
REASSESSMENT
Patients bleeding is significantly improved post-intervention.
PLAN
The patient requires close monitoring and potential further intervention with epistad posterior ballooning if needed. The case will be discussed with ENT for specialized care and admission due to ongoing anticoagulation therapy.
MEDICATION RECONCILIATION
Apixaban (Eliquis)
MEDICAL DECISION MAKING
-Number and Complexity of Problems Addressed: Chronic conditions affecting care include Parkinsons disease. Differential Diagnosis includes hypertension, coagulopathy due to anticoagulation therapy, nasal trauma, nasal polyps, allergic rhinitis,
upper respiratory infection, sinusitis, dry nasal mucosa, hereditary hemorrhagic telangiectasia, and vascular malformation of nasal cavity.
-Risk: Escalation of care including admission was considered due to complexity and risk factors such as the patients anticoagulant use and posterior epistaxis. The patient will be admitted for further observation and specialist consultation.
DIAGNOSIS
R04.0 Epistaxis
Coagulopathy
Past History
Past History
ED Past Medical History: Arrthythmia (Atrial fib), CAD, HTN, Hypercholesterolemia and Other (Parkinsons )
ED Past Surgical History: Cardiac (cabg x2, TAVR, Pacemaker); Negative Appendectomy, Bowel resection or Cholecystectomy
Social History
Tobacco: Former smoker
Alcohol: Occasional
Drug: None
Personal:
Living: with family
Employment: Retired
Family History
Family History: Other (Noncontributory)
Phy Exam
Physical Exam
Physical Exam:
.
Course
Orders/Labs/Results
Orders:
Orders
08/14/25 13:54
Tranexamic Acid 1,000 mg .ROUTE .STK-MED ONE
08/14/25 14:39
Basic Metabolic Panel Urgent
Complete Blood Count/With Diff Urgent
Prothrombin Time Urgent
Vital Signs
Initial and Last Documented VS:
Initial Vital Signs
Pulse Resp BP Pulse Ox
76 16 174/95 99
08/14/25 13:06 08/14/25 13:06 08/14/25 13:06 08/14/25 13:06
Last Documented Vital Signs
Pulse Resp BP Pulse Ox
76 16 174/95 99
08/14/25 13:06 08/14/25 13:06 08/14/25 13:06 08/14/25 15:36
Procedures
Nosebleed
Drug treatment: Tranexamic Acid
Treatment: local pressure applied and Posterior balloon
Post treatment bleeding: still some oozing
Additional information:
Bleeding much improved. Scant oozing likely related to saturated balloon but no further posterior pharynx blood
*Pulse Oximetry
SaO2: 99
Oxygen Mode of Delivery: Room air
Patient hypoxic: no
*Critical Care Note
Total Time (30-74mins, 75-104mins- exclusive of procedures): 35 minutes
Patient Management
Discussion with other providers: [employer] Director (Case discussed with Dr. Sims)
ED Attending Note
-
Portions of this chart may have been created with voice recognition software.� Occasional wrong word or��sound alike� substitutions may have occurred due to the inherent limitations of voice recognition software.
Discharge Plan
Departure
Patient Disposition: Admit
Date of Disposition: 08/14/25
Time of Disposition: 15:36
Admit to: Telemetry
Presentation/result/management discussed w/ accepting MD/DO: Hospitalist
Discharge Problem:
Acute posterior epistaxis, Coagulopathy
Prescriptions:
No Action
atorvastatin 20 MG tablet
20 mg PO QPM
nitroglycerin 0.4 MG tablet, sublingual
0.4 mg sublingual [id number] PRN (Reason: chest pain)
Rx Instructions:
took over a year ago
zolpidem 5 MG tablet
5 - 10 mg PO HSPRN PRN (Reason: insomnia)
fluticasone propionate 1 SPRAY spray,suspension
1 spray intranasal DAILYPRN PRN (Reason: congestion)
carbidopa-levodopa 25-100 mg Tablet Extended Release
3 tab PO TID
gabapentin 400 mg Capsule
400 mg PO HS
metoprolol succinate 25 mg Tablet Extended Release 24 Hr
25 mg PO BID
rasagiline 1 mg Tablet
1 mg PO DAILY
Eliquis 5 mg Tablet
5 mg PO BID
aspirin 81 mg Capsule
81 mg PO DAILY
prednisone 10 mg Tablet
See Rx Instructions .ROUTE .COMPLEX Qty: 30 0RF
Rx Instructions:
Take By Mouth:
40 mg daily x3 days, 30 mg daily x3 days,
20 mg daily x3 days, 10 mg daily x3 days.
magnesium citrate [Citrate of Magnesia] Solution
150 ml PO DAILY PRN (Reason: Constipation) Qty: 296 5RF
Referrals:
Shaw Whiteside, DO [Family Provider, Family Practice]
Interventions
Interventions:
*Risk Screen - Suicide Last Done: 08/14/25 13:12
*General Assessment Last Done: 08/14/25 13:32
*Neglect/Abuse Screening Last Done: 08/14/25 13:32
*ED- Fall Risk Assessment Last Done: 08/14/25 13:32
*ED COVID-19 Vaccine History Last Done: 08/14/25 13:32
*ED Influenza Vaccine History Last Done: 08/14/25 13:32
ED-EENT Assessment Last Done: 08/14/25 13:32
Discharge Date and Time
Print Language: OCCITAN
[2025-08-14 15:47] LABS: Hematocrit 41.4 % (39.0-52.0); Hemoglobin 13.5 g/dL (13.0-18.0); Mean Corp Hgb Conc. 32.6 g/dL (33.0-37.0); Mean Corpuscular Volume 90.0 fL (80.0-94.0); Nucleated Red Blood Cells % 0 % (-); Platelet Count 145 10^3/uL (130-400); Red Cell Dist. Width 15.0 % (11.5-14.5)
[2025-08-14 15:55] LABS: INR 1.27; PT 16.1 Sec (11.4-14.6)
[2025-08-14 16:00] LABS: Blood Urea Nitrogen 28 mg/dl (9-20); Calcium 9.5 mg/dl (8.4-10.2); Carbon Dioxide 31 mmol/L (22-30); Chloride 99 mmol/L (98-107); Glucose 116 mg/dl (70-99); Potassium 4.3 mmol/L (3.5-5.1); Sodium 136 mmol/L (135-145); eGFR > 60.00
--- NOTE | 2025-08-14 16:47 | HPS.HSE ---
Family Physician
-
Family Physician: Shaw Whiteside
Chief Complaint
-
Nosebleed
History of Present Illness
85-year-old male with history of A-fib on Eliquis presents today with nosebleed from right nostril for couple hours. Patient notes that his bleeding started at 1 AM and did not stop for 1-1/2 hours, he then called the EMS. He denies history of
epistaxis in the past. He is currently hemodynamically stable. In the ED right anterior nasal packing helped to control the bleeding. His hemoglobin is 13.5 (previous 14.3), normal platelet count. History of epistaxis 4 years ago resolved on its
own. Last dose of eliquis this morning.
Medical History
Past Medical History
Past Medical History: Reports Other ( Arrthythmia (Atrial fib), CAD, HTN, Hypercholesterolemia and Other (Parkinsons ))
Past Surgical History: Reports Other (Cardiac (cabg x2, TAVR, Pacemaker); Negative Appendectomy, Bowel resection or Cholecystectomy)
Social History
Tobacco: Former Smoker
Alcohol: None
Drug: None
Personal:
Living: With Family
Employment: Retired
Family History
Family History: Not pertinent
Allergies / Home Medications
Allergies reflects when Allergies were last updated in [facility].
Home Medications with original date entered in [facility]
Allergy/Medication List:
Allergies
Allergy/AdvReac Type Severity Reaction Status Date / Time
No Known Allergies Allergy Verified 04/13/25 12:06
Home Medications
atorvastatin 20 mg tablet 20 mg PO QPM High Cholesterol 02/20/18
apixaban 5 mg tablet (Eliquis) 5 mg PO BID Blood Clot Prevention/Tx 05/12/23
carbidopa ER 25 mg-levodopa 100 mg tablet,extended release 2 tab PO HS 05/12/23
gabapentin 400 mg capsule 400 mg PO HS Neurological Condition 05/12/23
metoprolol succinate 25 mg tablet,extended release 24 hr 25 mg PO BID Heart Disease/Condition 05/12/23
rasagiline 1 mg tablet 1 mg PO DAILY 05/12/23
acetaminophen 500 mg tablet (Tylenol Extra Strength) 1,000 mg PO HS mild pain 08/14/25
carbidopa 25 mg-levodopa 100 mg tablet 3 tab PO TID 08/14/25
cyanocobalamin (vitamin B-12) 1,000 mcg tablet 1,000 mcg PO DAILY Supplement 08/14/25
famotidine 40 mg tablet (Pepcid) 40 mg PO HS Gastrointestinal Issue 08/14/25
furosemide 40 mg tablet (Lasix) 40 mg PO DAILY Fluid Retention/Swelling 08/14/25
losartan 50 mg tablet 25 mg PO DAILY Heart Disease/Condition 08/14/25
pantoprazole 40 mg tablet,delayed release (Protonix) 40 mg PO DAILY Gastrointestinal Issue 08/14/25
zolpidem 10 mg tablet (Ambien) 5 mg PO HS Sleep 08/14/25
Review of Systems
-
History Source: Patient
A 12 point ROS was completed and negative except as noted: Yes
Physical Exam
Vital Signs
Vital Signs
Pulse Resp BP Pulse Ox
70 16 174/95 99
08/14/25 16:30 08/14/25 16:30 08/14/25 13:06 08/14/25 15:36
Physical Exam
General: Comfortable and Conversant
HEENT: NormoCephalic, Anicteric and Other (right anterior nasal pack in ED, no active bleeding )
Respiratory: Clear
Cardiac: S1/S2 and Regular Rhythm
GI: Soft, Non Tender and Non Distended
Musculoskeletal: No Edema
Neuro: AO x 3
Hematologic/Lymphatic: No Lymphadenopathy
Psych: Calm
Laboratory Results
-
08/14/25 15:18
08/14/25 15:18
Laboratory Results
PT 16.1 Sec (11.4-14.6) H 08/14/25 15:18
INR 1.27 08/14/25 15:18
Data Reviewed
-
Lab Data: Labs Reviewed by me and Discussed with Physician
Impression/Plan
-
IMPRESSION:
Epistaxis secondary to chronic anticoagulation
History of atrial fibrillation
History of CAD
History of Parkinson's disease
History of restless leg
History of GERD
History of insomnia
PLAN:
Epistaxis secondary to chronic anticoagulation
Admit for observation
Patient is hemodynamically stable
Last dose of Eliquis this am
No trauma/not taking Vitamin E or fish oil
Tranexamic acid x 1 in ED
R anterior nasal packing done in ED -- bleeding controlled, no active bleeding
Hold Eliquis
Stable hemoglobin 13.5( previous 14.3)
Normal platelet count
Consult ENT for further eval
Monitor H&H
Transfuse blood if significant drop in HB
History of atrial fibrillation
Hold Eliquis
History of CAD
Continue Lasix and Toprol
History of Parkinson disease
Continue carbidopa levodopa
Continue rasagiline
History of restless leg
Continue gabapentin
History of GERD
Continue PPI and Pepcid
History of insomnia
continue zolpidem
Full code
SCD
Regular diet
--- NOTE | 2025-08-14 16:48 | W.PN.UPDATE ---
Update Note
Progress Note Update
This note serves as an addendum to the H&P by PGY3
HPI
85M HX Prx AF, chr Eliquis, HX PKDz, Restless Leg Syndrome
- pw new onset nose bleed unable to control
- denied trauma
- At ER - placed anterior nasal packing
- Last dose Eliquis was this morning
- ER consulted ENT
HX Epistaxis 4 yrs ago
Hemodynamically stable at ER
Current Hgb is 13.5
Relevant VS
Pulse Resp BP Pulse Ox
70 16 174/95 99
08/14/25 16:30 08/14/25 16:30 08/14/25 13:06 08/14/25 15:36
PE
Gen: NAD
HEENT: Post balloon nasal pacing
Neck: supple
Lungs: CTA
Cor: Regular S1 S2
Abdomen:�soft NT NG NRT
HEARING THERAPIST: AAO3
MS: no edema
Psych: Nl mood and affect
Relevant Data
04/13/25 08/14/25
12:19 15:18
WBC 9.1 9.9
Hgb 14.3 13.5
MCV 89.5 90.0
Plt Count 154 145
01/27/25 TTE
Technically difficult study secondary to patient's limited mobility
Normal left ventricular size with normal left ventricular systolic function
LVEF 65-70%
Normal RV size and systolic function
Right-sided device wires present
Mild mitral stenosis with mean transmitral gradient 5 mmHg and moderate mitral regurgitation
Well-seated transcatheter aortic valve with peak/mean gradients 22/12 mmHg and no aortic regurgitation
Mild tricuspid regurgitation
Estimated pulmonary artery pressure of 35-38 mmHg, assuming a right atrial pressure of 5-8
No pericardial effusion
When compared to prior study dated 02/05/2024, mitral valve was previously sclerotic with moderate MR. TAVR is stable with prior peak/mean gradients
16 mmHg with mild AI.
No prior hospitalist admission just ER visits to
ASSESSMENT & PLAN
New onset Post Epistaxis - failed OP measure to stop
- Hemodynamically stable
- arrested Nasal bleeding with balloon TXA
- T & S
- FU H & H
- ENT consulted by ER
Clinically in Regular Rhythm
HX Prx AF on Chr Eliquis
- Hold Eliquis
HLD
- on Stain
HX PKD
- on Carbidopa - Levodopa
HX TAVR and CABG
[facility] HTN
- on Frusemide, Losartan and Metoprolol succinate
DVT Px: SCD
Full code
OBS MS
[2025-08-14] MEDS: LIPITOR 20 MG PO (18:23)
[2025-08-14 18:39] VITALS: BP 169/98
[2025-08-14] MEDS: TOPROL XL 25 MG PO (19:55)
[2025-08-14 20:41] LABS: Hematocrit 41.5 % (39.0-52.0); Hemoglobin 13.6 g/dL (13.0-18.0)
--- NOTE | 2025-08-14 20:42 | PTCARENOTE ---
Patient received in bed at change of shift. Balloon in right nare with moderate amount of bright red blood noted to balloon tip. No signs of distress noted. AAox3. MENTASTA. H&H drawn with patient tolerating. No drop noted in H&H at current time. Bed
alarm in place.
[2025-08-14] MEDS: SINEMET CR 25-100 (EXTENDED RELEASE) 2 TABLET PO (21:39)
[2025-08-14] MEDS: TYLENOL 1000 MG PO (21:40)
[2025-08-14] MEDS: PEPCID 40 MG PO (21:40)
[2025-08-14] MEDS: SINEMET 25-100 3 TABLET PO (21:40)
[2025-08-14] MEDS: NEURONTIN 400 MG PO (21:41)
[2025-08-14] MEDS: AMBIEN 5 MG PO (21:49)
[2025-08-14 23:24] VITALS: BP 125/88
[2025-08-15 02:32] LABS: Hematocrit 38.5 % (39.0-52.0); Hemoglobin 12.6 g/dL (13.0-18.0)
[2025-08-15 04:26] VITALS: BP 160/88
[2025-08-15 07:10] VITALS: BP 168/85
[2025-08-15] MEDS: VITAMIN B-12 1000 MCG PO (08:02)
[2025-08-15] MEDS: COZAAR 25 MG PO (08:03)
[2025-08-15] MEDS: SINEMET 25-100 3 TABLET PO (08:03)
[2025-08-15] MEDS: PROTONIX 40 MG PO (08:03)
[2025-08-15] MEDS: TOPROL XL 25 MG PO (08:04)
[2025-08-15] MEDS: LASIX 40 MG PO (08:04)
--- NOTE | 2025-08-15 08:06 | CON.MD ---
Consultation - Medical
-
Chief complaint: Epistaxis
History of present illness: This patient is an 85-year-old gentleman who is chronically anticoagulated with Eliquis and has a history of hypertension who presented to the emergency room yesterday with epistaxis from the right side. After cautery
failed to control the bleeding, the patient's nose was packed with a rapid Rhino 7.5 cm pack. This has controlled the bleeding and the patient has been doing well. His Eliquis is currently being held. He has a history of Parkinson disease and
coagulopathy. The patient also has a history of acid reflux. I was asked to see the patient in follow-up for epistaxis. His bleeding is currently controlled.
Past medical history:
Chronic illnesses: Chronically anticoagulated with Eliquis, coagulopathy, acute posterior epistaxis, hypertension, acid reflux, Parkinson's disease, neuralgia, hypercholesterolemia,
Medications: Acetaminophen 1000 mg p.o. nightly, Eliquis 5 mg p.o. twice daily, atorvastatin 20 mg p.o. every afternoon, carbidopa levodopa 2 tablets p.o. nightly, carbidopa levodopa 3 tablets p.o. 3 times daily, vitamin B12 1000 mcg p.o. daily,
famotidine 40 mg p.o. nightly, Lasix 40 mg a day, gabapentin 400 mg p.o. daily, losartan 25 mg p.o. daily, metoprolol 25 mg p.o. twice daily, pantoprazole 40 mg p.o. daily, rasagiline 1 mg p.o. daily, zolpidem 5 mg p.o. nightly
Allergies: No known drug allergies
Hospitalizations: The patient is currently hospitalized for epistaxis
Family history: Astin is noncontributory for this problem
Social history: The patient is a non-smoker
Review of systems: Positive history of epistaxis, positive for history of Parkinson's disease, history of acid reflux, negative for shortness of breath, negative for respiratory distress, negative for active bleeding from the nose
Physical examination: Head atraumatic and normocephalic
Eyes: Extraocular movements are intact and pupils are equal and reactive to light
Ears: Normal
Nose: Rapid Rhino balloon packing in right nose without active bleeding
Oral cavity/oropharynx: No active bleeding noted. No blood seen, no lesions noted
Neck: Supple without adenopathy
Cranial nerves: 2 through 12 are intact
Voice: Normal tone and volume
Salivary glands: Normal to examination
Thyroid gland: Normal
Impression/plan: This patient is an 85-year-old gentleman who is chronically anticoagulated with Eliquis. He presented to the emergency room with right epistaxis yesterday. After cautery could not control the bleeding, his nose was packed with a
7.5 cm rapid Rhino balloon pack. The patient is currently controlled well. His Eliquis has been held. I would suggest that his Eliquis be held until his packing is removed in the office in 2 days. He can follow-up Friday for packing removal.
Follow-up sooner if problems occur.
Consultation
-
Date/Time Consultation Requested: 08/14/25 5pm
Date/Time Consultation Performed: 08/15/25 8am
Requesting Provider: hospitalist service
Performing Provider: Bethany
Reason for Consultation: epistaxis
[2025-08-15 09:42] LABS: Hematocrit 38.5 % (39.0-52.0); Hematocrit 38.6 % (39.0-52.0); Hemoglobin 13.0 g/dL (13.0-18.0); Hemoglobin 13.2 g/dL (13.0-18.0); Mean Corp Hgb Conc. 34.3 g/dL (33.0-37.0); Mean Corpuscular Volume 89.5 fL (80.0-94.0); Platelet Count 152 10^3/uL (130-400); Red Cell Dist. Width 15.0 % (11.5-14.5)
--- NOTE | 2025-08-15 10:24 | CM ---
CM reviewed chart, patient seen bedside, initial assessment completed.
Patient is an 85-year-old male with history of A-fib on Eliquis presents today with nosebleed from right nostril for couple hours.
Patient resides with his in a multiple story home, two steps to enter, first floor set up.
Patient reports having a cane, walker, and transport chair at home.
Patient reports he is current with home care- believes it is [facility]- will place referral in [facility].
Patient confirms PCP Shaw Whiteside, Pharmacy [facility], confirms prescription coverage, also [facility]
Patient denies insecurities at home.
[employer] form verbally reviewed, provided with copy, placed in chart.
Patient confirms transportation home from .
CM will continue to follow.
Plan; home with referral to [facility]
[2025-08-15 10:46] LABS: Blood Urea Nitrogen 26 mg/dl (9-20); Calcium 9.5 mg/dl (8.4-10.2); Carbon Dioxide 28 mmol/L (22-30); Chloride 101 mmol/L (98-107); Glucose 122 mg/dl (70-99); Potassium 3.8 mmol/L (3.5-5.1); Sodium 136 mmol/L (135-145); eGFR > 60.00
[2025-08-15 11:00] VITALS: BP 146/73
--- NOTE | 2025-08-15 13:21 | W.PN.HOSP.TC ---
Today's Communication/Plan
-
Discharge
Assessment / Plan
Assessment / Plan
Gen-AAOx3, NAD
HEENT-NC, AT, anicteric, clear oral mm, right nares packed
Neck-supple
CV-reg, no M, +S1/S2
Lungs-clear B/L
Abd-soft, NT, ND
Ext-no edema
Musculoskeletal-no cyanosis, clubbing
Skin-warm and dry
Neuro-grossly non-focal
Psych-calm, cooperative
Epistaxis -right side. Acute epistaxis due to chronic anticoagulation with Eliquis. Eliquis now on hold.
Underwent packing in the emergency room. Administered tranexamic acid.
Evaluated by ENT. Keep packing in place until he is seen in the ENT office this Friday.
Hold Eliquis until packing is removed on Friday as per ENT.
Chronic atrial fibrillation -hold Eliquis as above.
Hyperlipidemia -atorvastatin.
Parkinson disease -stable.
RLS
CAD
GERD
Full code
Dispo -medically stable for discharge today. Follow-up with PCP and ENT. Updated on the phone.
Updated nursing.
32 minutes spent in discharge process.
Anticipated Discharge: Today
Subjective/Interval History
-
Date of Service: August 15, 2025
Patient seen and examined. No complaints.
Objective Data
-
Labs:
Laboratory Results
08/15/25 08/15/25 08/15/25
02:23 09:27 09:27
WBC 10.4
Hgb 12.6 L 13.2 13.0
Hct 38.5 L 38.5 L
Plt Count
Sodium
Potassium
Chloride
Carbon Dioxide
BUN
Creatinine
Glucose
Calcium
08/15/25
09:27
WBC
Hgb
Hct 38.6 L
Plt Count 152
Sodium 136
Potassium 3.8
Chloride 101
Carbon Dioxide 28
BUN 26 H
Creatinine 0.8
Glucose 122 H
Calcium 9.5
Vital Signs:
Vital Signs
Temp Pulse Resp BP Pulse Ox
97.3 F 74 16 146/73 99
08/15/25 11:00 08/15/25 11:00 08/15/25 11:00 08/15/25 11:00 08/15/25 11:00
I&O
08/14/25 08/15/25 08/16/25
06:59 06:59 06:59
Intake Total 480 / 480
Output Total 650 / 650
Balance -170 / -170
Review of Systems
-
History Source: Patient
All other systems: Reviewed and negative
--- NOTE | 2025-08-15 13:28 | W.DS.TRANS ---
DC Summary - Patient Registration Rep
-
Discharge Instructions:
Discharge Diagnosis/Procedures Right sided nosebleed
Diet Regular
Activity As tolerated
Driving Restrictions As prior to admission
Bathing Restrictions None
Instructions:
Stand-Alone Forms:
Changes to Home Medications: No
Discharge Medications:
DC Medications w/original date entered in [employer]
atorvastatin 20 mg tablet 20 mg PO QPM High Cholesterol 02/20/18
apixaban 5 mg tablet (Eliquis) 5 mg PO BID Blood Clot Prevention/Tx 05/12/23
Held on 08/15/25. Instructions: hold until nasal packing removed on Friday 08/17.
carbidopa ER 25 mg-levodopa 100 mg tablet,extended release 2 tab PO HS Parkinson's 05/12/23
gabapentin 400 mg capsule 400 mg PO HS Neurological Condition 05/12/23
metoprolol succinate 25 mg tablet,extended release 24 hr 25 mg PO BID Heart Disease/Condition 05/12/23
rasagiline 1 mg tablet 1 mg PO DAILY Parkinson's 05/12/23
acetaminophen 500 mg tablet (Tylenol Extra Strength) 1,000 mg PO HS mild pain 08/14/25
carbidopa 25 mg-levodopa 100 mg tablet 3 tab PO TID Parkinson's 08/14/25
cyanocobalamin (vitamin B-12) 1,000 mcg tablet 1,000 mcg PO DAILY Supplement 08/14/25
famotidine 40 mg tablet (Pepcid) 40 mg PO HS Gastrointestinal Issue 08/14/25
furosemide 40 mg tablet (Lasix) 40 mg PO DAILY Fluid Retention/Swelling 08/14/25
losartan 50 mg tablet 25 mg PO DAILY Heart Disease/Condition 08/14/25
pantoprazole 40 mg tablet,delayed release (Protonix) 40 mg PO DAILY Gastrointestinal Issue 08/14/25
zolpidem 10 mg tablet (Ambien) 5 mg PO HS Sleep 08/14/25
Home Medication Changes
Pending Results: No
== END 2025-08-15 14:37 | disposition home or self-care (01) ==
LOC: 4 WEST ACU 17:01
PROVIDERS: Student in an Organized Health Care Education/Training Program; ADMITTING PHYSICIAN Internal Medicine; ATTENDING PHYSICIAN Hospitalist; CONSULT PHYSICIAN Otolaryngology Facial Plastic Surgery; EMERGENCY PHYSICIAN Emergency Medicine; FAMILY PHYSICIAN Family Medicine
DX: R04.0 Epistaxis (principal); D68.32 Hemorrhagic disorder due to extrinsic circulating anticoagulants; R05.9 Cough, unspecified; G20.A1 Parkinson's disease without dyskinesia, without mention of fluctuations; K21.9 Gastro-esophageal reflux disease without esophagitis; G25.81 Restless legs syndrome; G47.00 Insomnia, unspecified; D68.9 Coagulation defect, unspecified; I48.20 Chronic atrial fibrillation, unspecified; I25.10 Atherosclerotic heart disease of native coronary artery without angina pectoris; E78.00 Pure hypercholesterolemia, unspecified; I10 Essential (primary) hypertension; Z79.01 Long term (current) use of anticoagulants; Z87.891 Personal history of nicotine dependence; Z90.49 Acquired absence of other specified parts of digestive tract; Z95.0 Presence of cardiac pacemaker; Z95.1 Presence of aortocoronary bypass graft; Z95.2 Presence of prosthetic heart valve; Z79.82 Long term (current) use of aspirin; Z79.899 Other long term (current) drug therapy
CPT/HCPCS: 30901; 80048; 85014; 85018; 85025; 85027; 85610; 99291; G0378

== ENCOUNTER 2025-08-28 10:59 | Emergency (ER) | payer MEDICARE, OTHER, SELFPAY ==
[2025-08-28 11:01] VITALS: BP 150/83
--- NOTE | 2025-08-28 12:18 | ED.GENMED ---
History of Present Illness
General
Chief Complaint: Skin Surface Trauma
Source: patient
Exam Limitations: none
Time Seen by Provider: 08/28/25 12:17
Nursing documentation reviewed up to this point in time: agreed with
History of Present Illness
History of Present Illness:
The patient is a very pleasant 85-year-old man who hit his left anterior lower leg accidentally against a walker 2 days ago and suffered a skin tear that has been persistently bleeding. Patient denies chest pain, shortness of breath and
lightheadedness. His reports that they bandaged it multiple times but the blood soaked through the bandage. Patient denies weakness and numbness of the legs. His reports he has been able to walk with a walker. Patient describes minimal
pain to the area. His reports that he received a tetanus pertussis shot about 7 years ago when a family member was born.
Past History
Past History
ED Past Medical History: Arrthythmia (Atrial fib), CAD, HTN, Hypercholesterolemia and Other (Parkinsons )
ED Past Surgical History: Cardiac (cabg x2, TAVR, Pacemaker)
Social History
Tobacco: Former smoker
Alcohol: Occasional
Drug: None
Personal:
Living: with family
Employment: Retired
Family History
Family History: Other (Noncontributory)
Phy Exam
Physical Exam
Physical Exam:
Physical Exam
General: no apparent distress, not acutely ill
Neck: supple.
Heart: s1/s2 regular rate and rhythm
Lungs: no acute respiratory distress. clear bilaterally
Abdomen: Soft, nontender
Neuro: alert and oriented. no focal neurological deficits
Skin: 3 cm x 2 cm skin tear anterior left lower leg with oozing of blood
Psychiatric: well kept. interactive and cooperative
Extremities: no edema. No bony tenderness of bilateral lower extremities.
Course
Vital Signs
Initial and Last Documented VS:
Initial Vital Signs
Temp Pulse Resp BP Pulse Ox
97.6 F 77 18 150/83 97
08/28/25 11:01 08/28/25 11:01 08/28/25 11:01 08/28/25 11:01 08/28/25 11:01
Last Documented Vital Signs
Temp Pulse Resp BP Pulse Ox
97.6 F 77 18 150/83 97
08/28/25 11:01 08/28/25 11:01 08/28/25 11:01 08/28/25 11:01 08/28/25 12:18
MDM/Problems Addressed
Differential Diagnosis Includes:
Bleeding skin tear, bleeding laceration, acute blood loss anemia
MDM/Problems Addressed:
Patient presents with acute bleeding from skin tear
Chronic conditions affecting care: Arrhythmia
Acute Exacerbation and/or Progression of Chronic Illness:
Patient's heart sounds regular and is not tachycardic. No sign of exacerbation of A-fib with RVR
Acute Exacerbation and/or Progression of Chronic Illness: Arrhythmia
*Pulse Oximetry
SaO2: 97
Oxygen Mode of Delivery: Room air
Patient hypoxic: no
*EKG
Interpreted by ED Provider?: NA
*Glue Cook Interpretation
Rate: Glue Cook- N/A
*Critical Care Note
Total Time (30-74mins, 75-104mins- exclusive of procedures): Not Applicable
Data Reviewed
Source: patient and spouse
Patient Management
Social determinants of health affecting care: Living situation and Strong social support
Escalation/DeEscalation of care consider admission/obs:
I applied a small amount of silver nitrate to the skin tear. I then applied Surgifoam and a pressure dressing. Patient and instructed to keep the pressure dressing on for 2 to 3 days and to follow-up with primary care doctor. I told him that
a small amount of oozing of blood could be normal. Encouraged that the patient elevate his left leg to promote clot to form
ED Attending Note
-
Portions of this chart may have been created with voice recognition software.� Occasional wrong word or��sound alike� substitutions may have occurred due to the inherent limitations of voice recognition software.
Discharge Plan
Departure
Patient Disposition: Home (Routine Discharge)
Date of Disposition: 08/28/25
Time of Disposition: 12:39
Patient with high blood pressure during this ER visit?: Yes
Condition: Good
Covid-19: Not Applicable
Discharge Problem:
skin tear left lower leg
Instructions: Taking care of cuts, scrapes, and puncture wounds, BLOOD PRESSURE
Prescriptions:
No Action
atorvastatin 20 MG tablet
20 mg PO QPM
carbidopa-levodopa 25-100 mg Tablet Extended Release
2 tab PO HS
gabapentin 400 mg Capsule
400 mg PO HS
metoprolol succinate 25 mg Tablet Extended Release 24 Hr
25 mg PO BID
rasagiline 1 mg Tablet
1 mg PO DAILY
Eliquis 5 mg Tablet
5 mg PO BID
losartan 50 mg Tablet
25 mg PO DAILY
furosemide [Lasix] 40 mg Tablet
40 mg PO DAILY
famotidine [Pepcid] 40 mg Tablet
40 mg PO HS
cyanocobalamin (vitamin B-12) 1,000 mcg Tablet
1,000 mcg PO DAILY
acetaminophen [Tylenol Extra Strength] 500 mg Tablet
1,000 mg PO HS
pantoprazole [Protonix] 40 mg Tablet,Delayed Release (Dr/Ec)
40 mg PO DAILY
zolpidem [Ambien] 10 mg Tablet
5 mg PO HS
carbidopa-levodopa 25-100 mg Tablet
3 tab PO TID
Referrals:
UNKNOWN - PT DOES,NOT KNOW [Family Provider]
Activity Restrictions/Additional Instructions:
Surgifoam was placed against the bleeding skin tear and a pressure dressing was applied. Please keep the pressure dressing dry and in place for at least 48 to 72 hours. Please see your doctor to have it removed. Please keep the left leg elevated
as much as possible
Interventions
Interventions:
*Risk Screen - Suicide Last Done: 08/28/25 11:32
*General Assessment Last Done: 08/28/25 11:33
*Neglect/Abuse Screening Last Done: 08/28/25 11:32
*ED COVID-19 Vaccine History Last Done: 08/28/25 11:05
*ED Influenza Vaccine History Last Done: 08/28/25 11:05
[facility] Fall Risk Assessment Tool Last Done: 08/28/25 11:31
*Nursing Disposition Last Done: 08/28/25 12:45
ED-Skin Assessment Last Done: 08/28/25 11:32
Discharge Date and Time
Discharge Date/Time: 08/28/25 12:46
Print Language: BENINESE
== END 2025-08-28 12:46 | disposition home or self-care (01) ==
LOC: EMR 10:59
PROVIDERS: EMERGENCY PHYSICIAN Emergency Medicine
DX: S81.812A Laceration without foreign body, left lower leg, initial encounter (principal); W45.8XXA Other foreign body or object entering through skin, initial encounter; I48.91 Unspecified atrial fibrillation; I25.10 Atherosclerotic heart disease of native coronary artery without angina pectoris; I10 Essential (primary) hypertension; E78.00 Pure hypercholesterolemia, unspecified; G20.A1 Parkinson's disease without dyskinesia, without mention of fluctuations; Z87.891 Personal history of nicotine dependence; Z95.0 Presence of cardiac pacemaker; Z95.1 Presence of aortocoronary bypass graft
CPT/HCPCS: 99282

== ENCOUNTER 2025-09-10 13:04 | Emergency (ER) | payer MEDICARE, OTHER, SELFPAY ==
[2025-09-10 13:11] VITALS: BP 172/96
[2025-09-10 13:34] LABS: Hematocrit 38.3 % (39.0-52.0); Hemoglobin 12.7 g/dL (13.0-18.0); Mean Corp Hgb Conc. 33.2 g/dL (33.0-37.0); Mean Corpuscular Volume 90.1 fL (80.0-94.0); Nucleated Red Blood Cells % 0 % (-); Platelet Count 203 10^3/uL (130-400); Red Cell Dist. Width 14.6 % (11.5-14.5)
[2025-09-10 13:51] LABS: ALT (SGPT) < 10 U/L (0-50); AST (SGOT) 18 U/L (17-59); Albumin 4.6 g/dl (3.5-5.0); Alkaline Phosphatase 103 U/L (38-126); Blood Urea Nitrogen 26 mg/dl (9-20); Calcium 9.6 mg/dl (8.4-10.2); Carbon Dioxide 29 mmol/L (22-30); Chloride 99 mmol/L (98-107); Glucose 93 mg/dl (70-99); Potassium 3.7 mmol/L (3.5-5.1); Sodium 138 mmol/L (135-145); Total Protein 7.6 g/dl (6.3-8.2); eGFR > 60.00
[2025-09-10 15:51] VITALS: BMI 31.8
[2025-09-10 15:52] VITALS: BP 137/74
--- NOTE | 2025-09-10 15:54 | ED.GENMED ---
History of Present Illness
General
Chief Complaint: Skin Problem
Source: patient
Exam Limitations: none
Time Seen by Provider: 09/10/25 15:35
History of Present Illness
History of Present Illness:
85yoM with a history of atrial fibrillation on Eliquis, presenting with his for evaluation of wound check. Patient sustained a skin tear to his right lower leg earlier this month. He was seen in the ED on 09/01 for bleeding and silver nitrate
cautery was performed. He has been following closely with his PCP for wound care and wound seems to be gradually improving. He was started on doxycycline 3 days ago by his PCP for possible cellulitis. reports that his [place] redness seems
significantly improved since starting this. noticed some redness to his right foot today. She called the PCP's office and was told to bring him to the ED for evaluation. The foot redness has since resolved and she now believes this was due
to his sock. He also sustained a new skin tear today while in the shower. He is otherwise asymptomatic and denies any fevers or chills.
Past History
Past History
ED Past Medical History: Arrthythmia (Atrial fib), CAD, HTN, Hypercholesterolemia and Other (Parkinsons )
ED Past Surgical History: Cardiac (cabg x2, TAVR, Pacemaker)
Social History
Tobacco: Former smoker
Alcohol: Occasional
Drug: None
Personal:
Living: with family
Employment: Retired
Family History
Family History: Other (Noncontributory)
Phy Exam
General Physical Exam
General Presentation: well appearing and no apparent distress
General Skin: warm and dry
General Habitus: normal and elderly
General Mental: alert
ENT Exam
ENT Exam: normocephalic
Pulmonary Exam
Pulmonary Exam: no respiratory distress
Neurological Exam
Neurological Exam: alert
[place] Coma Scale
Eye Opening: Spontaneous
Verbal Response: Oriented
Motor Response: Obeys Commands
GCS Total Score: 15
Musculoskeletal Exam
Musculoskeletal Exam: other (2 skin tears noted to R anterior lower leg without surrounding signs of cellulitis/warmth or drainage. Foot appears normal without skin changes. 2+ DP pulse.)
Psychiatric Exam
Psychiatric Exam: normal mood/affect
Course
Orders/Labs/Results
Orders:
Orders
09/10/25 13:21
Complete Blood Count/With Diff Urgent
Comprehensive Metabolic Panel Urgent
Abnormal Lab Results
09/10/25
13:21
WBC 10.9 H 10^3/uL
(4.8-10.8)
RBC 4.25 L 10^6/uL
(4.70-6.10)
Hgb 12.7 L g/dL
(13.0-18.0)
Hct 38.3 L %
(39.0-52.0)
RDW 14.6 H %
(11.5-14.5)
Abs Immat Gran (auto) 0.1 H 10^3/uL
(0-0.05)
Absolute Neuts (auto) 7.2 H 10^3/uL
(1.4-6.5)
Absolute Monos (auto) 1.1 H 10^3/uL
(0.1-0.6)
Monocytes % 9.6 H %
(1.7-9.3)
BUN 26 H mg/dl
(9-20)
09/10/25 13:21
09/10/25 13:21
Vital Signs
Initial and Last Documented VS:
Initial Vital Signs
Temp Pulse Resp BP Pulse Ox
97.5 F 78 16 172/96 100
09/10/25 13:11 09/10/25 13:11 09/10/25 13:11 09/10/25 13:11 09/10/25 13:11
Last Documented Vital Signs
Temp Pulse Resp BP Pulse Ox
97.5 F 82 18 137/74 100
09/10/25 13:11 09/10/25 15:52 09/10/25 15:52 09/10/25 15:52 09/10/25 15:56
MDM/Problems Addressed
Differential Diagnosis Includes:
85yoM here for wound check. Has been following with PCP for R leg skin tear. Sustained 2nd skin tear today. Currently on doxy. noticed redness to R foot today so brought him in. Redness now resolved and thinks this was from his sock. R
foot appears normal on exam. Two skin tears noted without signs of surrounding cellulitis. Reassurance provided. He was instructed to finish course of doxycycline and he has an appt scheduled with his PCP next week. ED return precautions reviewed
and he was discharged in stable condition.
*Pulse Oximetry
SaO2: 100
Oxygen Mode of Delivery: Room air
Patient hypoxic: no
*Critical Care Note
Total Time (30-74mins, 75-104mins- exclusive of procedures): Not Applicable
ED Attending Note
-
Portions of this chart may have been created with voice recognition software.� Occasional wrong word or��sound alike� substitutions may have occurred due to the inherent limitations of voice recognition software.
Discharge Plan
Departure
Patient Disposition: Home (Routine Discharge)
Date of Disposition: 09/10/25
Time of Disposition: 15:59
Patient with high blood pressure during this ER visit?: No
Discharge Problem:
Visit for wound check
Instructions: Taking care of cuts, scrapes, and puncture wounds
Prescriptions:
No Action
atorvastatin 20 MG tablet
20 mg PO QPM
carbidopa-levodopa 25-100 mg Tablet Extended Release
2 tab PO HS
gabapentin 400 mg Capsule
400 mg PO HS
metoprolol succinate 25 mg Tablet Extended Release 24 Hr
25 mg PO BID
rasagiline 1 mg Tablet
1 mg PO DAILY
Eliquis 5 mg Tablet
5 mg PO BID
losartan 50 mg Tablet
25 mg PO DAILY
furosemide [Lasix] 40 mg Tablet
40 mg PO DAILY
famotidine [Pepcid] 40 mg Tablet
40 mg PO HS
cyanocobalamin (vitamin B-12) 1,000 mcg Tablet
1,000 mcg PO DAILY
acetaminophen [Tylenol Extra Strength] 500 mg Tablet
1,000 mg PO HS
pantoprazole [Protonix] 40 mg Tablet,Delayed Release (Dr/Ec)
40 mg PO DAILY
zolpidem [Ambien] 10 mg Tablet
5 mg PO HS
carbidopa-levodopa 25-100 mg Tablet
3 tab PO TID
Referrals:
Shaw Whiteside DO [Family Provider, Family Practice]
Activity Restrictions/Additional Instructions:
Continue taking doxycycline.
Please follow-up with your family doctor next week as previously scheduled. Return to the ER with any worsening symptoms including fevers or spreading redness.
Interventions
Interventions:
*General Assessment Last Done: 09/10/25 15:44
*Neglect/Abuse Screening Last Done: 09/10/25 13:13
*ED COVID-19 Vaccine History Last Done: 09/10/25 15:44
*ED Influenza Vaccine History Last Done: 09/10/25 15:44
[facility] Risk Assessment Tool Last Done: 09/10/25 15:52
*Risk Screen - Suicide (C-SSRS) Last Done: 09/10/25 13:13
*Nursing Disposition Last Done: 09/10/25 16:02
ED-Skin Assessment Last Done: 09/10/25 15:42
Discharge Date and Time
Discharge Date/Time: 09/10/25 16:05
Print Language: CZECH
== END 2025-09-10 16:05 | disposition home or self-care (01) ==
LOC: EMR 13:04
PROVIDERS: Emergency Medicine; EMERGENCY PHYSICIAN Student in an Organized Health Care Education/Training Program; FAMILY PHYSICIAN Family Medicine
DX: Z48.00 Encounter for change or removal of nonsurgical wound dressing (principal); S81.811A Laceration without foreign body, right lower leg, initial encounter; X58.XXXA Exposure to other specified factors, initial encounter; Y93.E1 Activity, personal bathing and showering; Y92.002 Bathroom of unspecified non-institutional (private) residence as the place of occurrence of the external cause; I25.810 Atherosclerosis of coronary artery bypass graft(s) without angina pectoris; I48.91 Unspecified atrial fibrillation; I10 Essential (primary) hypertension; E78.00 Pure hypercholesterolemia, unspecified; G20.A1 Parkinson's disease without dyskinesia, without mention of fluctuations; Z79.01 Long term (current) use of anticoagulants; Z95.1 Presence of aortocoronary bypass graft; Z95.0 Presence of cardiac pacemaker; Z95.2 Presence of prosthetic heart valve; Z87.891 Personal history of nicotine dependence
CPT/HCPCS: 99283; 80053; 85025